=== PATIENT | male | born 1995 | race Caucasian/White ===

== ENCOUNTER 2018-12-21 12:39 | Inpatient (IN) | payer OTHER ==
[2018-12-21] VITALS (7 sets, daily range): BP systolic 124–133; BP diastolic 64–77; O2SAT 98–100
[~2018-12-21] VITALS: Ht 190.5 cm; Wt 84.9 kg
[2018-12-21] MEDS ORDERED: fentaNYL 100 MCG/2 ML INJECTION (J3010) As Ordered ONE (13:27)
[2018-12-21] MEDS ORDERED: MIDAZOLAM INJ 2 MG/2 ML VIAL (J2250) As Ordered ONE ×3 (13:27→13:55)
[2018-12-21 13:31] LABS: BASO % 0.4 % (0.0-1.0); EOS # 0.1 10^3/uL (0.0-0.5); EOS % 2.1 % (0.0-3.0); HEMATOCRIT 42.2 % (42.0-52.0); HEMOGLOBIN 14.6 g/dl (13.5-17.5); LYMPH # 1.4 10^3/uL (1.5-5.0); LYMPH % 20.4 % (24.0-44.0); MEAN CORPUSCULAR HEMOGLOBIN 29.7 pg (27.0-33.0); MEAN CORPUSCULAR HGB CONC 34.6 g/dl (32.0-36.5); MEAN CORPUSCULAR VOLUME 85.9 fl (80.0-96.0); MONO # 0.7 10^3/uL (0.0-0.8); MONO % 10.1 % (0.0-5.0); NEUTROPHILS # 4.5 10^3/uL (1.5-8.5); NEUTROPHILS % 66.7 % (36.0-66.0); PLATELET COUNT, AUTOMATED 228 10^3/uL (150-450); RED BLOOD COUNT 4.91 10^6/uL (4.30-6.10); WHITE BLOOD COUNT 6.8 10^3/uL (4.0-10.0)
[2018-12-21] MEDS ORDERED: LIDOCAINE 1% MDV 20ML VIAL As Ordered ONE (13:45)
--- NOTE | 2018-12-21 13:49 | REP ---
REASON FOR EXAM: Dyspnea. There is a moderate left sided pneumothorax which is shifting the mediastinal structures to the contralateral side. The osseous structures are normal. The heart is not enlarged. The pleural angles are sharp. IMPRESSION: Left sided tension pneumothorax. A phone call was placed to Dr. Hargrove, the ER provider, to describe these findings. Electronically Signed by Joel Abebe DO 12/21/2018 03:56 P
[2018-12-21] MEDS ORDERED: FLUMAZENIL 0.5 MG/5 ML VIAL As Ordered ONE (13:55)
[2018-12-21 13:56] LABS: BLOOD UREA NITROGEN 18 MG/DL (7-18); CALCIUM LEVEL 9.4 MG/DL (8.5-10.1); CARBON DIOXIDE LEVEL 26 MEQ/L (21-32); CHLORIDE LEVEL 106 MEQ/L (98-107); CK-MB VALUE MASS 2.4 NG/ML (<3.6); CPK CREATINE PHOSPHOKINASE 382 U/L (39-308); CREATININE FOR GFR 1.04 MG/DL (0.70-1.30); GLOMERULAR FILTRATION RATE > 60.0 (>60); GLUCOSE, FASTING 80 MG/DL (70-100); MB/CK RELATIVE INDEX 0.63 (< OR =4); NT-PRO BNP 43 PG/ML (<125); POTASSIUM SERUM 3.7 MEQ/L (3.5-5.1); SODIUM LEVEL 141 MEQ/L (136-145); THYROID STIMULATING HORMONE 0.554 uIU/ML (0.358-3.740); THYROXINE (T4) 8.4 UG/DL (4.5-12.0); TROPONIN I < 0.02 NG/ML (< 0.10)
--- NOTE | 2018-12-21 14:03 | REP ---
REASON: Cough and dyspnea. Prior plain film examination obtained earlier today showed a tension pneumothorax on the left. Dr. Hargrove was called and the finding of the left tension pneumothorax was discussed with Dr. Hargrove at the time the plain film examination was obtained. There is a moderate-sized pneumothorax on the left, which is shifting the mediastinal structures to the right. There are no abnormal lung masses. There are no pleural or pericardial effusions. Bone window technique throughout the exam shows no evidence of a fracture. IMPRESSION: Left-sided tension pneumothorax as described above. Electronically Signed by Joel Abebe DO 12/21/2018 03:57 P
[2018-12-21] MEDS ORDERED: MIDAZOLAM INJ 2 MG/2 ML VIAL (J2250) IV STA (14:11)
[2018-12-21] MEDS ORDERED: fentaNYL 100 MCG/2 ML INJECTION (J3010) IV ONE (14:15)
[2018-12-21] MEDS ORDERED: MORPHINE 4 MG/ML 1ML VIAL/SYRINGE (J2270) IV PRN (14:30)
[2018-12-21] MEDS ORDERED: PERCOCET 5MG/325MG TAB PO PRN (14:30)
[2018-12-21] MEDS ORDERED: LIDOCAINE 1% MDV 20ML VIAL SC ONE (14:30)
[2018-12-21] MEDS ORDERED: ACETAMINOPHEN TAB 650MG DOSE (2X325MG) PO PRN (14:30)
--- NOTE | 2018-12-21 14:49 | REP ---
REASON: Status post chest tube insertion. COMPARISON: Earlier today. The tension pneumothorax seen previously has been reduced. A small left apical left pneumothorax persists. The left sided thoracotomy tube tip is at the level of the aortic knob close to the mediastinal soft tissues. The right lung is clear and stable. The osseous structures stable and intact. IMPRESSION: Reduced pneumothorax with only a small residual persisting and other findings as described above. Electronically Signed by Joel Abebe DO 12/21/2018 03:57 P
--- NOTE | 2018-12-21 15:23 | RO ---
DATE OF PROCEDURE: 12/21/2018 PROCEDURE: Left lateral chest tube. PREPROCEDURE DIAGNOSIS: Left pneumothorax, possible tension. POSTPROCEDURE DIAGNOSIS: Left pneumothorax, possible tension. Consent was signed and placed in the chart. PROCEDURALIST: Dr. Naqvi SOFTWARE APPLICATIONS SPECIALIST: DYANA Krause ANESTHESIA: 8 mg IV Versed, 100 mcg IV fentanyl, and 30 mL of subcutaneous lidocaine. DESCRIPTION OF PROCEDURE: Informed consent was reviewed. The patient was placed in the right lateral recumbent position. The left fifth intercostal space was marked corresponding to the nipple line on the chest CT where there was a presence of anterolateral air. The skin was marked. Time-out was performed confirming correct site, correct procedure and correct side. After time-out was performed, I prepped and draped the field in a sterile manner with chlorhexidine and full barrier precautions. All precautions were used. I was fully gowned with sterile integrity. 1% lidocaine was then introduced subcutaneously and then above the rib down to the level of the pleura. There was a weiner air upon entering the pleura. The needle was removed and a vesta in the skin was made above this shanna. I then dissected down to the level of the pleura with the curved forceps. I then entered the space with a weiner of air. A 20-Lao chest tube was placed at 16 cm. This was secured, sutured and taped. Chest x-ray showed accurate position of the tube. After the initial weiner of air, there was no further air leak. Chest x-ray shows the majority of the lung is up to the chest wall. Appears to be some residual pneumothorax on the chest x-ray. The patient tolerated the procedure well. There were no observed complications. No bleeding. No hypoxia. MTDD
--- NOTE | 2018-12-21 17:53 | HPE ---
DATE OF ADMISSION: 12/21/2018 CHIEF COMPLAINT: Chest pain. HISTORY OF PRESENT ILLNESS: Pulmonary critical care team was called urgently to the emergency department to attend to Mr. Ashok Kaur. Mr. Kaur is a 23-year-old male who came into the emergency department today with chest pain. The patient stated that he started experiencing acute onset of chest pain approximately 10 a.m. this morning. 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 He was bending over to pick something up, and he felt almost a "pop" in his left chest and developed chest pain immediately. He states he did have a little bit of dyspnea with the chest pain. The patient has a history of a left-sided pneumothorax that occurred in October of this year, for which he was treated at [facility], and a chest tube was placed. The patient states the feeling was very similar to that that he had in October and therefore came immediately to [facility] Emergency Department, where he was evaluated and found to have a left-sided pneumothorax on chest x-ray and chest CT. The patient reports that other than the left-sided pneumothorax, he has been relatively healthy without any significant chronic medical illnesses. He is not on any medications. He is not allergic to any medicines. He is allergic to bees. The patient states since his last pneumothorax in October he has not had any further chest pain symptoms until today. He denies fevers or chills. He denies night sweats or unexplained weight loss. The patient denies any recurrent or recent respiratory illnesses. He denies any history of asthma. He is a former smoker. He states he smoked for about 6 years prior to quitting back in October around the time of his last pneumothorax. The patient is tall and thin. He denies any family history of pneumothorax or other respiratory issues. PAST MEDICAL HISTORY: Pneumothorax in October 2018 requiring chest tube. The patient was hospitalized at [facility]. Past history of smoking. 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 He smoked for 6 years but quit in October after his last pneumothorax. The patient states he drinks occasionally. The patient denies any illicit drug use. FAMILY MEDICAL HISTORY: The patient states both his mother and father are living and healthy without any significant medical issues. MEDICATIONS: None. ALLERGIES: No known drug allergies. Allergies to bees. REVIEW OF SYSTEMS: The patient denies fevers, chills, night sweats, unexplained weight loss. HEENT: The patient denies epistaxis. Denies vision changes or blurry or double vision. PULMONARY: The patient notes shortness of breath that started today as noted above. He denies cough or hemoptysis. CARDIAC: The patient is currently having chest pain due to pneumothorax as noted above. Denies any history of angina. Denies any diaphoresis. GASTROINTESTINAL: The patient denies nausea, vomiting, diarrhea, hematemesis, bright red blood per rectum. GENITOURINARY: The patient denies any dysuria or hematuria. MUSCULOSKELETAL: The patient denies any joint pain or joint swelling. NEUROLOGIC: The patient denies numbness or tingling. The patient denies any history of seizures or strokes. HEMATOLOGIC: The patient denies any bleeding issues or a history of blood transfusions. ENDOCRINE: The patient denies history of diabetes. Denies any hot or cold intolerance. PHYSICAL EXAMINATION: VITAL SIGNS: Temperature is 99.0, pulse 72, blood pressure 122/62, pulse oximetry 99% on room air, respiratory rate 70. GENERAL: The patient is alert and oriented times three. Mood affect appropriate. He is in some discomfort due to left-sided chest pain, but he is able to speak in complete sentences. HEENT: Head is normocephalic, atraumatic. Oropharynx without posterior pharyngeal erythema. Tongue is midline. Eyes: Pupils equal, round, and reactive to light and accommodation (PERRLA). NECK: Neck is supple. No cervical lymphadenopathy. No jugular venous distention (JVD). Trachea is midline. CHEST: Clear to auscultation bilaterally with some diminished breath sounds over the left chest wall. HEART: Regular rate and rhythm. S1, S2. No murmurs, rubs, or gallops. ABDOMEN: Positive bowel sounds, soft, nontender. No rebound or guarding. No obvious hepatosplenomegaly. EXTREMITIES: No clubbing, cyanosis, or edema. SKIN: Skin is warm and dry. NEUROLOGIC: Nonfocal grossly. LABORATORY DATA: WBC 6.8, hemoglobin 14.6, hematocrit 42.2, platelets 228. Sodium is 141, potassium 3.7, chloride is 106, carbon dioxide is 26, BUN 18, creatinine 1.04, glucose 80, calcium 9.4. CK 382, CK-MB 2.4, CK-MB relative index 0.63. Troponin I less than 0.02. BNP 43, TSH 0.554. Thyroxin is 8.4. Chest x-ray shows a left pneumothorax. Chest CT shows a left pneumothorax. ASSESSMENT AND PLAN: Pneumothorax, likely spontaneous but possible tension. The patient will require chest tube placement. He has a history of pneumothorax with the pneumothorax having occurred in October, requiring chest tube placement at that time. His body habitus is tall and thin, and therefore Marfan syndrome may be suspected, especially in light of the recurrent pneumothorax. We will place a left-sided chest tube and admit the patient to progressive care unit (PCU) for further monitoring. Additional workup for possible Marfan's syndrome will also be investigated.
--- NOTE | 2018-12-21 19:12 | ECGEPIP ---
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
[2018-12-21] MEDS: MORPHINE 4 MG/ML 1ML VIAL/SYRINGE (J2270) IV PRN (20:56)
[2018-12-21] MEDS: KETOROLAC 30 MG/ML VIAL (J1885) IV SCH (20:57)
[2018-12-22] VITALS (27 sets, daily range): BP systolic 112–128; BP diastolic 58–74; O2SAT 98–100
[2018-12-22] MEDS: KETOROLAC 30 MG/ML VIAL (J1885) IV SCH ×6 (00:37→21:44)
[2018-12-22 04:56] LABS: HEMATOCRIT 41.8 % (42.0-52.0); MEAN CORPUSCULAR HEMOGLOBIN 29.1 pg (27.0-33.0); MEAN CORPUSCULAR HGB CONC 33.5 g/dl (32.0-36.5); MEAN CORPUSCULAR VOLUME 86.9 fl (80.0-96.0); PLATELET COUNT, AUTOMATED 196 10^3/uL (150-450); RED BLOOD COUNT 4.81 10^6/uL (4.30-6.10); WHITE BLOOD COUNT 6.1 10^3/uL (4.0-10.0)
[2018-12-22 05:10] LABS: BLOOD UREA NITROGEN 19 MG/DL (7-18); CALCIUM LEVEL 8.7 MG/DL (8.5-10.1); CARBON DIOXIDE LEVEL 30 MEQ/L (21-32); CHLORIDE LEVEL 105 MEQ/L (98-107); CREATININE FOR GFR 0.95 MG/DL (0.70-1.30); GLOMERULAR FILTRATION RATE > 60.0 (>60); GLUCOSE, FASTING 90 MG/DL (70-100); POTASSIUM SERUM 4.2 MEQ/L (3.5-5.1); SODIUM LEVEL 140 MEQ/L (136-145)
--- NOTE | 2018-12-22 09:06 | REP ---
CHEST, TWO VIEWS: Two views of the chest are performed. There is a stable very small left apical pneumothorax. Left chest tube is noted. The tip is more lateral than on the prior study, but the sideport overlies the mid lung zone. Right lung is unremarkable and unchanged. Cardiomediastinal silhouette is unremarkable. Electronically Signed by Ayad Del Toro MD 12/23/2018 05:47 P
[2018-12-22] MEDS ORDERED: ISOVUE-370 76% 100ML VIAL (Q9967) As Ordered ONE (10:00)
[2018-12-22 11:48] LABS: INR 1.05; PROTHROMBIN TIME 13.5 SECONDS (11.8-14.0)
--- NOTE | 2018-12-22 12:23 | REP ---
CT CHEST WITH IV CONTRAST TECHNIQUE: Axial contrast enhanced images from the thoracic inlet to the upper abdomen using 100 mL Isovue 370 intravenous contrast material with multiplanar reformations. There is a left chest tube noted entering the upper left hemithorax and the distal end is in the anterior left pleural space superiorly. There is a tiny left apical pneumothorax with some minimal adjacent atelectatic change in the left lung apex. No significant bolus change is see in either lung. No infiltrate is seen more inferiorly. The lungs are otherwise clear. The heart is normal in size. There is no mediastinal, hilar or chest wall lymphadenopathy. Thoracic aorta is normal in caliber with no aneurysm. Ascending thoracic aorta has an AP diameter of 2.9 cm. There is no pleural or pericardial effusion. There is a tiny amount of residual thymic tissue in the anterior mediastinum. IMPRESSION: Tiny left apical pneumothorax with adjacent atelectatic change in the left lung apex. Left chest tube in place. No significant bullous change. Normal caliber of thoracic aorta. Electronically Signed by Ayad Del Toro MD 12/23/2018 05:54 P
--- NOTE | 2018-12-22 14:01 | CCN ---
DATE OF SERVICE: 12/22/2018 Ashok had some pain overnight, responded well to Toradol more so than narcotics, and is awake, alert, talking, ambulating in the halls. He ambulated down to x-ray this morning. Chest x-ray shows a small persistent left apical pneumothorax. The patient is eating well. No bowel movements as of yet. Has no complaints. No fever or chills. No arrhythmias. PHYSICAL EXAM: Temperature is 97.4, pulse is 55, respiratory rate is 14, blood pressure is 112/60 with a mean arterial pressure of 77, oxygen saturation 100% on 2 liters. General: Alert and oriented. Affect and mood are appropriate. Nutrition and hygiene are good. Nasal mucosa pink and moist without lesions. Tongue is midline. Neck: Supple. No tracheal deviation or mass. Lymphs: No cervical, supraclavicular or axillary adenopathy. Cardiac: Bradycardic, S1, S2, without audible murmur, rub or gallop. No elevated jugular venous pulse (JVP). No peripheral edema. Pulmonary: Clear to auscultation without rales, rhonchi or wheezes. No dullness to percussion. Chest tube site was inspected. There is no significant bleeding. Dressing was removed. Chest tube is in place. There is no subcutaneous air. This was redressed. Abdomen: Soft, nondistended, nontender. No hepatosplenomegaly. No masses. Somewhat scaphoid and thin. Extremities: No cyanosis, clubbing or edema. Skin: Pale without rash, jaundice or bruising. Musculoskeletal: Fairly thin build but normal muscle tone. The thenar distance is not abnormal, and therefore, the other skeletal physical findings usually seen with Marfan are not present. Chest x-ray this morning shows a persistent left apical pneumothorax. There is some prominence of the right heart, although this could be from shifting to the right of the cardiac silhouette, however there does appear to be some minimal right atrial enlargement, therefore, will obtain an echocardiogram. On chest CT, there does not appear to be cardiomegaly. However, the anatomy is somewhat distorted possibly from the pneumothorax. Laboratory evaluation shows sodium 140, potassium 4.2, chloride 105, bicarbonate of 30, BUN of 19, creatinine of 0.95 with a glucose of 98, white blood cell count of 6.1, hemoglobin of 14.0 and a platelet count of 196. IMPRESSION: Second spontaneous pneumothorax with near tension. I have consulted thoracic surgery. Thoracic surgery agrees for need for potential pleurodesis. They will evaluate the patient today and transfer him to their service. In the meantime, the patient's pain is well controlled. There is no evidence of progression. There remains a minimal apical pneumothorax. Therefore, the patient will remain on suction for now at negative 20 cm. Pain control with narcotics and Toradol (Toradol is scheduled, narcotics are as needed). Will continue to monitor for issues with bowel movements.
--- NOTE | 2018-12-22 21:14 | CR ---
DATE OF CONSULTATION: 12/22/2018 The patient was seen at the request of Dr. Naqvi for a recurrent pneumothorax. 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 It was accompanied by shortness of breath but not overly severe. He continued on the job for a few hours and then sought treatment in the emergency room. He was found to have a large pneumothorax with a mediastinal shift. Because of my absence, Dr. Naqvi saw him and placed a posterolateral chest tube with resolution of his pneumothorax. Prior to this, he did not have a cough, sputum production, nor did he have fevers, chills or sweats. He had no dysphagia and no weight loss. He is a former smoker, having stopped this last October after his first pneumothorax, which was treated at [facility] with an anterosuperior chest tube. He smoked about a pack a week of Valencia's. PAST MEDICAL HISTORY: None. PAST SURGICAL HISTORY: None. HOME MEDICATIONS: None. ALLERGIES: None. TRAVEL HISTORY: He has been to [place] but not to the [facility] or to the [facility]. 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 EXPOSURES: No dogs, birds, cats at home. No exposure to tuberculosis. FAMILY HISTORY: No history of sudden in the family. No other family medical history with his mother and father healthy and without medical problems. REVIEW OF SYSTEMS: CONSTITUTIONAL: See history of present illness. Without fevers, chills, sweats, night sweats or weight loss. EYES: Without diplopia. Without amaurosis fugax or prior jaundice. NOSE: Without epistaxis. MOUTH: Has his own teeth. RESPIRATORY: See history of present illness. CARDIAC: Without orthopnea or paroxysmal nocturnal dyspnea or peripheral edema. Without prior myocardial infarction. Without intermittent claudication. GASTROINTESTINAL: Without nausea, vomiting, diarrhea, constipation, melena, hematochezia, hematemesis or abdominal pain. GENITOURINARY: Without hematuria or dysuria or history of renal stones. NEUROLOGIC: Without paresthesias, paralysis or seizures. ENDOCRINE: Without diabetes. Without thyroid disease. PSYCHIATRIC: Without pathological anxieties, depression, or psychoses. PHYSICAL EXAMINATION: Well developed, well nourished, white male in no acute distress. Lying comfortably with the chest tube in place. VITAL SIGNS: Temperature 97.4 with a pulse of 55 and in sinus rhythm, respiratory rate of 14 with a blood pressure of 112/60. He is 100% saturated on 2 liters nasal cannula. EYES: Pupils are equal and reactive to light. Extraocular muscles intact. Sclerae nonicteric. NOSE: Without deformity. MOUTH: Shows mucous membranes to be pink and moist. Lips and commissures without lesions. There is no thrush. He does not have a high arched palate. HEAD: Normocephalic. NECK: Supple. There is no jugular venous distention (JVD). No subcutaneous emphysema. Trachea is midline. He has 2+ carotid pulses and no thyromegaly or lymphadenopathy. LUNGS: His lungs show equal breath sounds on either side. Percussion note is full to the diaphragm. I hear normal vesicular sounds without wheezes, rhonchi or rales. There is no pectus excavatum or carinatum. CARDIAC EXAM: Without murmurs, clicks, gallops or rubs. I cannot feel his point of maximum impulse (PMI). S1, S2 are normal. In particular, I do not hear aortic regurgitation. ABDOMEN: Soft, nontender. Bowel sounds positive. There is no hepatomegaly. No costovertebral angle tenderness. EXTREMITIES: Show no pretibial edema. No calf tenderness. No differential swelling of the upper extremities. SKIN: Warm, dry and perfused without cyanosis or mottling, including that of the nail beds and knees. He can wrap his thumb and forefinger around his wrist so that essentially they overlap up to the nail beds. He has a negative thumb sign. NEUROLOGIC: Shows II through XII intact with gross motor and gross sensation intact. Gait is not tested. PSYCHIATRIC: Shows him to be awake and alert, oriented times three with appropriate mood and affect and conversational. SKIN: Warm, dry and perfused. Without cyanosis or mottling, including that of the nail beds and knees. INVESTIGATIONS: White count is 6.1 with a hemoglobin and hematocrit of 14.0 and 41.8, respectively. Platelet count of 196. Differential yesterday showed 66% neutrophils, 20% lymphocytes, 10% monocytes. There are no immature forms and no toxic granulations. His electrolytes are normal with a BUN and creatinine of 19 and 0.95 with a glucose of 90 and a calcium of 8.7. Troponin yesterday were less than 0.02. Chest x-ray done yesterday, done portably, shows a 50% pneumothorax by volume with a mediastinal shift and the heart pushed over to the right side. There were tension signs, including depression of the left diaphragm and the mediastinal shift. There was no subcutaneous emphysema. After his chest tube placement, lung was reexpanded to the chest wall and the mediastinum was placed back in the midline. CT scan was done prior to the chest tube insertion. It confirmed the pneumothorax. There were probably apical blebs, although I cannot be sure because the lung is compressed. I see no lung masses, per se. The aorta measures 2.8 cm, although the CT is not contrasted. I see no lymphadenopathy. Today's chest x-ray done PA and lateral shows an increased right heart border. IMPRESSION: 1. Recurrent spontaneous pneumothorax times two on the left side. 2. Probable bleb disease. 3. Rule out aortic dilatation. 4. Rule out Marfan's. PLAN/DISCUSSION: I will schedule him for a wedge resection and a talc pleurodesis this Monday. In the meantime, I will repeat a CT scan now that his lung is fully expanded to the chest wall to look for the discretion of bleb disease. Furthermore, I will do it contrast to evaluate the size of the aorta. We will also obtain an echocardiogram, even though I do not hear any aortic regurgitation on physical examination.
[2018-12-23] VITALS (23 sets, daily range): BP systolic 117–127; BP diastolic 57–74; O2SAT 97–100
[2018-12-23] MEDS: KETOROLAC 30 MG/ML VIAL (J1885) IV SCH ×2 (00:28→04:54)
--- NOTE | 2018-12-23 06:51 | ECHO ---
DATE OF PROCEDURE: 12/22/2018 REFERRING PHYSICIAN: Dr. Simon INDICATION: Question of aortic insufficiency, Marfan syndrome. HEIGHT: 191 cm WEIGHT: 73 kg. DIMENSIONS: IVS: 0.9 LV: 4.7 LVPW: 0.9 LA: 3.1 Aorta: 3.2 IVC: 2.8 Mitral E wave velocity: 76, A wave: 49 E prime septal: 15 E prime lateral: 18 FINDINGS The study is of acceptable technical quality even though apical views were limited by chest tube. The patient is in sinus rhythm. Left ventricle is normal size and systolic function with estimated ejection fraction (EF) 55-60%. I do not appreciate any segmental wall motion abnormality. Right ventricle also appears normal. Both atria appear normal. Aortic valve was unfortunately not well seen. I am unable based on available views to determine that the valve is tricuspid. Mitral and tricuspid valves appear normal. Pulmonic valve also appears normal. No pericardial effusion is noted. Aortic root, aortic arch and abdominal aorta appear normal. Doppler interrogation reveals no aortic stenosis or insufficiency. There is trace mitral and trace tricuspid insufficiency. Quality of TR jet was not sufficient to adequately estimate pulmonary artery pressure. Pulmonic valve is functionally competent. Mitral inflow pattern and tissue Doppler imaging of mitral annulus reveal normal diastolic function. CONCLUSION 1. Study is of acceptable technical quality. 2. Normal LV size, systolic and diastolic function. 3. No significant valvular disease. 4. Possibly elevated central venous pressure but unable to estimate pulmonary artery pressure. 5. Normal size aortic root, normal appearing aortic arch and abdominal aorta. COMMENT Subacute bacterial endocarditis (SBE) prophylaxis is not recommended.
--- NOTE | 2018-12-23 09:07 | REP ---
CHEST, TWO VIEWS: Two views of the chest are performed and compared to prior study of 12/22/2018. Tiny left apical pneumothorax remains stable. Left chest tube remains in place. No acute infiltrate is seen. Heart and mediastinum are unchanged. IMPRESSION: Stable exam. Electronically Signed by Ayad Del Toro MD 12/23/2018 05:56 P
[2018-12-23] MEDS: PERCOCET 5MG/325MG TAB PO PRN ×3 (10:17→18:12)
[2018-12-23] MEDS: KETOROLAC 30 MG/ML VIAL (J1885) IV PRN ×2 (10:18→19:23)
--- NOTE | 2018-12-23 13:18 | IPN ---
DATE: 12/23/2018 Mr. Kaur has had an uneventful 24 hours. His pain is being well controlled at chest tube insertion site. He is not short of breath. He is able to cough and there is no air leak. His vital signs show a maximum temperature (Tmax) of 98.3 with a heart rate that ranges between 55-44 in a sinus rhythm, respiratory rate of 16-14 without the use of accessory muscles who is 100% saturated on 2 liters nasal cannula. Blood pressure ranges between 120/59-112/60. His intake and output for the past 24 hours has been recorded as 1870 in and 985 out for a positivity of 85 mL. He has put out 10 mL from the chest tube and there is no air leak. Weight is pending today. On physical examination, he has equal breath sounds on either without wheezes, rhonchi or rales. Percussion note is full to the diaphragm. Cardiac exam is without murmurs, clicks, gallops or rubs. I cannot feel his point of maximum impulse (PMI). S1 and S2 are normal. Abdomen soft, nontender. Bowel sounds positive. There is no hepatomegaly. No costovertebral angle (CVA) tenderness. Extremities show no pretibial edema. No calf tenderness. No differential swelling of the upper extremities. Skin is warm, dry and perfused without cyanosis or mottling, including that of the nail beds and knees. Neck is supple. There is no jugular venous distention. No subcutaneous emphysema. Trachea is midline. Mouth shows the mucous membranes to be pink and moist. Lips and commissures without lesions. There is no thrush. Eyes show the pupils equal and reactive. Extraocular muscles intact. Sclerae nonicteric. Neuro shows II-XII intact along with gross motor and gross sensation intact. Gait is not tested. Psychiatric shows him to be awake and alert, oriented times three with appropriate mood and affect and conversational. His chest x-ray shows his lung fully expanded to the chest wall. Chest CT done yesterday shows major bleb disease at the apex of left upper lobe. Aorta measures 2.6 cm and is not enlarged just above the root. Liver shows no lesions and adrenals have a normal configuration. IMPRESSION: 1. Recurrent spontaneous pneumothorax. 2. Distal emphysematous bleb disease. PLAN AND DISCUSSION: His echocardiogram shows normal systolic and diastolic function without valvular disease with a normal size aortic root. I therefore will not pursue anymore of the Marfan's workup as I do not think that he has Marfan. We will take him to the operating room tomorrow where we will undertake a wedge resection of the upper lobe with a talc pleurodesis.
[2018-12-23] MEDS: MORPHINE 4 MG/ML 1ML VIAL/SYRINGE (J2270) IV PRN (21:59)
[2018-12-24] VITALS (7 sets, daily range): BP systolic 100–132; BP diastolic 53–78
[2018-12-24] MEDS: PERCOCET 5MG/325MG TAB PO PRN (00:30)
[2018-12-24] MEDS ORDERED: MUPIROCIN 2% OINT 22 GM TUBE TOP ONE (06:00)
[2018-12-24] MEDS ORDERED: ceFAZolin SOD 2 GM in IV 1 EA IV ONE (06:00)
[2018-12-24] MEDS ORDERED: fentaNYL 100 MCG/2 ML INJECTION (J3010) IV SCH (06:00)
--- NOTE | 2018-12-24 07:53 | REP ---
Clinical: Follow up pneumothorax. Technique: PA and lateral. Comparison: 12/23/2018. Findings: Left chest tube in stable position. Small residual left anteroapical pneumothorax unchanged from prior examination. No acute consolidation or effusion. Mediastinum and cardiac silhouette within normal limits and stable. Skeletal structures are intact. Impression: Stable small left anteroapical pneumothorax. Electronically Signed by Ricky Miranda MD 12/24/2018 07:45 A
[2018-12-24] MEDS ORDERED: CETACAINE SPRAY 5GM As Ordered ONE (09:43)
[2018-12-24] MEDS ORDERED: STERILE TALC POWDER 3GM VIAL As Ordered ONE ×2 (09:43→12:53)
[2018-12-24] MEDS ORDERED: BUPIVACAINE HCL 0.5% 30 ML VIAL As Ordered ONE (09:44)
[2018-12-24] MEDS ORDERED: BUPIVACAINE LIPOSOME/PF 1.3% 20ML VIAL (13.3MG/ML)(EXPAREL)(C9290 PER1MG) As Ordered ONE (09:44)
[2018-12-24] MEDS ORDERED: TALCAIR POWDER BLOWER (CAN ONLY BE USED WITH 3GM TALC VIAL) XX ONE ×2 (10:07→12:53)
[2018-12-24] MEDS ORDERED: fentaNYL 100 MCG/2 ML INJECTION (J3010) As Ordered ONE ×2 (10:35→14:10)
[2018-12-24] MEDS ORDERED: MIDAZOLAM INJ 2 MG/2 ML VIAL (J2250) As Ordered ONE ×2 (10:35→13:53)
[2018-12-24] MEDS: MIDAZOLAM INJ 2 MG/2 ML VIAL (J2250) IV SCH ×2 (10:42→10:50)
[2018-12-24] MEDS ORDERED: ceFAZolin 2 GM/D5W 50 ML IV BAG (J0690 PER 500MG) As Ordered ONE (10:54)
[2018-12-24] MEDS ORDERED: MUPIROCIN 2% OINT 22 GM TUBE As Ordered ONE (10:54)
[2018-12-24] MEDS ORDERED: FENTANYL 2MCG/ML BUPIVACAINE 0.0625% NACL 250ML IV BAG As Ordered ONE (11:40)
[2018-12-24] MEDS ORDERED: ONDANSETRON 4MG/2ML VIAL (J2405) IV PRN ×3 (11:45→15:00)
[2018-12-24] MEDS ORDERED: PERCOCET 5MG/325MG TAB PO PRN (11:45)
[2018-12-24] MEDS ORDERED: BISACODYL 10 MG SUPP PR PRN (11:45)
[2018-12-24] MEDS ORDERED: NORCO, ANEXSIA 5/325MG TABLET (HYDROcodone/ACETAMINOPHEN) PO PRN (11:45)
[2018-12-24] MEDS ORDERED: LEVALBUTEROL 1.25 MG/0.5 ML CONCENTRATE NEB NEB PRN (11:45)
[2018-12-24] MEDS ORDERED: KETOROLAC 30 MG/ML VIAL (J1885) IV SCH (13:00)
[2018-12-24] MEDS ORDERED: fentaNYL 250 MCG/5 ML INJECTION (J3010) As Ordered ONE (13:53)
[2018-12-24] MEDS ORDERED: BUPIVACAINE HCL 0.25% 30 ML VIAL As Ordered ONE (13:53)
[2018-12-24] MEDS ORDERED: ROCURONIUM BROMIDE 50 MG/5 ML VIAL As Ordered ONE (13:53)
[2018-12-24] MEDS ORDERED: ePHEDrine SULFATE 25 MG/5 ML(5MG/ML) SYRINGE As Ordered ONE (13:53)
[2018-12-24] MEDS ORDERED: KETOROLAC 60 MG/2 ML VIAL (J1885) As Ordered ONE (13:53)
[2018-12-24] MEDS ORDERED: SUGAMMADEX SODIUM 500 MG/5 ML VIAL (BRIDION) As Ordered ONE (13:53)
[2018-12-24] MEDS ORDERED: ONDANSETRON 4MG/2ML VIAL (J2405) As Ordered ONE (13:53)
[2018-12-24] MEDS ORDERED: LIDOCAINE 2% INJ 100 MG/5 ML SDV (FOR ANES.) As Ordered ONE (13:53)
[2018-12-24] MEDS: FENTANYL/BUPIVACAINE/NACL BAG 250 ML EPIDURAL SCH (13:56)
[2018-12-24] MEDS: fentaNYL 100 MCG/2 ML INJECTION (J3010) IV PRN ×4 (14:05→14:20)
[2018-12-24 14:14] LABS: BASO % 0.2 % (0.0-1.0); EOS # 0.1 10^3/uL (0.0-0.5); EOS % 0.8 % (0.0-3.0); HEMATOCRIT 42.6 % (42.0-52.0); HEMOGLOBIN 14.7 g/dl (13.5-17.5); LYMPH # 0.7 10^3/uL (1.5-5.0); LYMPH % 4.9 % (24.0-44.0); MEAN CORPUSCULAR HEMOGLOBIN 29.1 pg (27.0-33.0); MEAN CORPUSCULAR HGB CONC 34.5 g/dl (32.0-36.5); MEAN CORPUSCULAR VOLUME 84.4 fl (80.0-96.0); MONO # 0.2 10^3/uL (0.0-0.8); MONO % 1.1 % (0.0-5.0); NEUTROPHILS # 12.3 10^3/uL (1.5-8.5); NEUTROPHILS % 92.6 % (36.0-66.0); PLATELET COUNT, AUTOMATED 204 10^3/uL (150-450); RED BLOOD COUNT 5.05 10^6/uL (4.30-6.10); WHITE BLOOD COUNT 13.3 10^3/uL (4.0-10.0)
[2018-12-24] MEDS ORDERED: KETOROLAC 30 MG/ML VIAL (J1885) IV PRN (14:15)
--- NOTE | 2018-12-24 14:23 | RO ---
DATE OF PROCEDURE: 12/21/2018 PREOPERATIVE DIAGNOSES: Recurrent pneumothorax, distal emphysematous bleb disease. POSTOPERATIVE DIAGNOSES: Recurrent pneumothorax, distal emphysematous bleb disease. PROCEDURES: Right upper lobe wedge resection, extensive lysis of adhesions, bronchoscopy, five-level rib block, and talc pleurodesis. SURGEON: Adam Simon MD STOCK CLERK [employer]: ANESTHESIA: FINDINGS: The upper lobe apex was densely adherent to the cupula. These adhesions were taken down with both the harmonic scalpel and electrocautery. While taking down one of the adhesions and pushing it aside, I noted a white structure. We were not below the 1st rib. However, I did not know exactly what this structure was; and I, therefore, stayed away from it. It looked for all the world like a nerve. Remainder of adhesions were taken down with care being taken to avoid the subclavian vein and subclavian artery, which were both visualized. The subclavian artery was engulfed in these adhesions and was taken down very carefully. The bronchoscopy revealed a normal branching tracheobronchial tree with very few secretions. There were no endobronchial lesions. DESCRIPTION OF PROCEDURE: Under satisfactory single-lumen endotracheal intubation, the bronchoscope was placed into the tracheobronchial tree. Each segment and subsegment was thoroughly inspected, and there were no endobronchial lesions. There were scant secretions. The patient was then turned into the right lateral decubitus position and sterilely prepped and draped in the usual sterile fashion. Eventually, three video-assisted thoracic surgery (VATS) incisions were made in and around the 7th and 6th intercostal space. A scope was inserted, and the above findings were noted. There ensued a long dissection of the adhesions. They were very dense and very adherent. I did have quite a bit of difficulty with the harmonic scalpel cutting through the adhesions due to their density. The subclavian artery and vein were identified and were assiduously avoided. The above findings were noted with regard to the large cylindrical white structure. The adhesion around it had been taken down, and then as the adhesion was slipped away, I uncovered the white structure. I did not know exactly what it was, but I preserved it. My suspicion was that it was a neural structure, maybe even a cord of the brachial plexus. Once taking down all of the adhesions, the lobe could be freed up, and a generous wedge resection of the upper apex was undertaken with three firings of an Crook GI stapler. Talc was then uniformly insufflated into the chest to cover the two-thirds of the chest wall. Prior to doing so, however, the apical basilar segment of the left lower lobe was inspected, and there were no blebs. After infusing the talc, two chest tubes were placed, one anteriorly a straight #24 and a curved #24 posteriorly. The chest tubes were secured to the chest wall. A five-level rib block consisting of a mixture of Marcaine and Exparel was then infiltrated below each rib. The incisions were instilled with the same mixture. The incisions were closed with running 0 Vicryl suture for the extrathoracic muscles, running 3-0 Vicryl suture for the subcutaneous tissue, and running 4-0 Monocryl subcuticular suture for the skin. The patient tolerated the procedure well and left the operating room in satisfactory condition. HA
[2018-12-24 14:35] LABS: BLOOD UREA NITROGEN 17 MG/DL (7-18); CALCIUM LEVEL 8.7 MG/DL (8.5-10.1); CARBON DIOXIDE LEVEL 26 MEQ/L (21-32); CHLORIDE LEVEL 103 MEQ/L (98-107); CREATININE FOR GFR 0.95 MG/DL (0.70-1.30); GLOMERULAR FILTRATION RATE > 60.0 (>60); GLUCOSE, FASTING 114 MG/DL (70-100); POTASSIUM SERUM 3.7 MEQ/L (3.5-5.1); SODIUM LEVEL 139 MEQ/L (136-145)
[2018-12-24 14:40] LABS: ABG BASE EXCESS -1.3 (-2.0-2.0); ABG HCO3 24.3 MEQ/L (22.0-26.0); ABG O2 SATURATION 98.7 % (95.0-99.0); ABG PARTIAL PRESSURE CO2 43.8 mmHg (35.0-45.0); ABG PARTIAL PRESSURE O2 133.9 mmHg (75.0-100.0); ABG STANDARD HCO3 23.4 MEQ/L (22.0-26.0); ABG TOTAL CO2 25.6 MEQ/L (22.0-29.0); ABG pH (ARTERIAL) 7.362 UNITS (7.350-7.450)
[2018-12-24] MEDS ORDERED: WALLBOXKEY XX PRN (15:00)
[2018-12-24] MEDS ORDERED: METOCLOPRAMIDE INJ 10MG/2ML VIAL (J2765) IV PRN (15:00)
[2018-12-24] MEDS ORDERED: EPIDURAL/PCA KEYS XX PRN (15:00)
[2018-12-24] MEDS ORDERED: NALOXONE INJ 0.4 MG/1 ML VIAL (J2310) IV PRN (15:00)
[2018-12-24] MEDS ORDERED: diphenhydrAMINE INJ 50MG/ML VIAL (J1200) IV PRN (15:00)
--- NOTE | 2018-12-24 15:45 | REP ---
Portable chest x-ray: Single view. History: Status post left upper lobe wedge resection. Comparison chest x-ray: December 24, 2018. Findings: EKG monitoring electrodes and oxygen tubes are seen. Two left-sided chest tubes have now been inserted. There is a suture line in the left apex post thoracotomy. A small collection of apical pleural air appears to be present at the tip of the more superior chest tube. There is linear plate-like atelectasis in the left perihilar region. Lung quinteros are otherwise clear. Heart is not enlarged. A thoracic epidural catheter is noted in place. Impression: Post thoracotomy changes in the left apex. Two left chest tubes. Small left apical pneumothorax collection. Electronically Signed by Antelmo Barillas MD 12/24/2018 05:18 P
[2018-12-24] MEDS ORDERED: ACETAMINOPHEN 1000MG 100ML IV BTL (OFIRMEV) (J0131 PER 10MG) As Ordered ONE (16:14)
[2018-12-24] MEDS ORDERED: KCL 20MEQ IN D5/0.9%NACL 1000 ML As Ordered ONE (16:14)
[2018-12-24] MEDS ORDERED: ACETAMINOPHEN *IV* 1,000 MG in IV 1 EA IV ONE (16:15)
[2018-12-24] MEDS: KCL 20MEQ IN D5/NS 1000ML 1,000 ML IV SCH (16:32)
[2018-12-24] MEDS: DOCUSATE SODIUM 100 MG CAP PO SCH ×2 (17:07→21:00)
[2018-12-24] MEDS: MOM 30ML SUSPENSION UDC PO SCH (17:08)
[2018-12-24] MEDS: KETOROLAC 30 MG/ML VIAL (J1885) IV SCH ×2 (17:08→21:25)
[2018-12-24] MEDS: PANTOPRAZOLE 40MG TAB (PROTONIX) PO SCH (17:08)
[2018-12-24] MEDS: ceFAZolin SOD 1 GM in D5W MINI-BAG PLUS 50 ML IV SCH (18:50)
[2018-12-24] MEDS: LEVALBUTEROL 1.25 MG/0.5 ML CONCENTRATE NEB NEB SCH (19:44)
[2018-12-24] MEDS: HEPARIN SOD (PORCINE) 5000 UNITS/ML VIAL SC SCH (21:57)
[2018-12-25] VITALS (10 sets, daily range): BP systolic 93–128; BP diastolic 51–74
[2018-12-25] MEDS: KETOROLAC 30 MG/ML VIAL (J1885) IV SCH ×4 (01:18→21:31)
[2018-12-25] MEDS: LEVALBUTEROL 1.25 MG/0.5 ML CONCENTRATE NEB NEB SCH ×4 (01:51→19:20)
[2018-12-25] MEDS: ceFAZolin SOD 1 GM in D5W MINI-BAG PLUS 50 ML IV SCH ×3 (05:05→19:45)
[2018-12-25] MEDS: KCL 20MEQ IN D5/NS 1000ML 1,000 ML IV SCH (05:06)
[2018-12-25 05:24] LABS: BASO % 0.1 % (0.0-1.0); EOS % 0.1 % (0.0-3.0); HEMATOCRIT 37.7 % (42.0-52.0); HEMOGLOBIN 13.2 g/dl (13.5-17.5); LYMPH # 0.6 10^3/uL (1.5-5.0); LYMPH % 5.2 % (24.0-44.0); MEAN CORPUSCULAR HEMOGLOBIN 30.3 pg (27.0-33.0); MEAN CORPUSCULAR VOLUME 86.5 fl (80.0-96.0); MONO # 0.9 10^3/uL (0.0-0.8); MONO % 7.9 % (0.0-5.0); NEUTROPHILS # 10.1 10^3/uL (1.5-8.5); NEUTROPHILS % 86.3 % (36.0-66.0); PLATELET COUNT, AUTOMATED 174 10^3/uL (150-450); RED BLOOD COUNT 4.36 10^6/uL (4.30-6.10); WHITE BLOOD COUNT 11.7 10^3/uL (4.0-10.0)
[2018-12-25 05:43] LABS: ABG BASE EXCESS 1.6 (-2.0-2.0); ABG HCO3 26.5 MEQ/L (22.0-26.0); ABG O2 SATURATION 98.4 % (95.0-99.0); ABG PARTIAL PRESSURE O2 115.9 mmHg (75.0-100.0); ABG STANDARD HCO3 25.9 MEQ/L (22.0-26.0); ABG TOTAL CO2 27.8 MEQ/L (22.0-29.0); ABG pH (ARTERIAL) 7.408 UNITS (7.350-7.450)
[2018-12-25 05:57] LABS: BLOOD UREA NITROGEN 14 MG/DL (7-18); CALCIUM LEVEL 8.2 MG/DL (8.5-10.1); CARBON DIOXIDE LEVEL 27 MEQ/L (21-32); CHLORIDE LEVEL 105 MEQ/L (98-107); CREATININE FOR GFR 0.79 MG/DL (0.70-1.30); GLOMERULAR FILTRATION RATE > 60.0 (>60); GLUCOSE, FASTING 115 MG/DL (70-100); POTASSIUM SERUM 4.3 MEQ/L (3.5-5.1); SODIUM LEVEL 140 MEQ/L (136-145)
[2018-12-25] MEDS: FENTANYL/BUPIVACAINE/NACL BAG 250 ML EPIDURAL SCH (07:06)
--- NOTE | 2018-12-25 07:39 | IPN ---
DATE: 12/25/2018 This is now the first postoperative day for Mr. Kaur. He had a stable night of surgery. His pain is being well-controlled with the epidural, although it is going at 14 mL/h. He has complete neurologic function of his left hand and arm. His vital signs show a maximum temperature (T-max) of 98.9 with a heart rate that ranges between 51 and 47 in sinus rhythm, respiratory rate of 14-18 without the use of accessory muscles, who is 97-99% saturated on room air. His blood pressures range between 93/71 to 124/66. His intake and output over the past 24 hours is recorded as 2283 in and 3100 out for negativity of 817 mL. He has put out 280 mL from his chest tube and there is one minimal air leak with forceful coughing. Weight is pending today. PHYSICAL EXAMINATION: His lungs show equal breath sounds on either side with some rales which clear with coughing. Percussion note is full to the diaphragm. Cardiac exam is without murmurs, clicks, gallops or rubs. I cannot feel his point of maximum impulse (PMI). S1 and S2 are normal. Abdomen is soft and nontender. Bowel sounds are positive. There is no hepatomegaly. No costovertebral angle (CVA) tenderness. Extremities show no pretibial edema with no calf tenderness. No differential swelling of the upper extremities. Skin is warm, dry and perfused without cyanosis or mottling including that of the nail beds and knees. Neck is supple. There is no jugular venous distention. No subcutaneous emphysema. Trachea is midline. Mouth shows his mucous membranes to be pink and moist. Lips and commissures are without lesions. There is no thrush. Eyes show his pupils to be equal and reactive. Extraocular movements intact. Sclerae nonicteric. Neurologic shows II-XII intact along with gross motor and gross sensation intact. Gait is not tested. Psychiatric showed him to be awake, alert and oriented times three with appropriate and affect and conversational. His white count today is 11.7 with a hemoglobin and hematocrit 13.2 and 37.7 and a platelet count of 174 and stable. Differential shows 86% neutrophils, 5% lymphocytes, 9% monocytes. There are no immature forms or toxic granulations. Electrolytes are normal with a BUN and creatinine of 14 and 0.79 and a glucose of 115 and a calcium of 8.2. Blood gases today show pH of 7.40 with a pCO2 of 43 and pO2 of 115 with a base excess of 1.6. Chest x-ray is being taken as I dictate and I will review in a short while this morning. IMPRESSION: 1. Spontaneous pneumothorax recurrent left side. 2. Postoperative date #1 status post talc pleurodesis and wedge resection of distal emphysematous disease. PLAN AND DISCUSSION: He is already on progressive care orders and is awaiting a bed in progressive care unit (PCU). Will discontinue the arterial line. I estimate his hospital stay will be between 4 and 5 days. I will keep chest tube on suction today.
--- NOTE | 2018-12-25 08:12 | REP ---
PA and lateral chest: Comparison is the portable chest of 12/24/2018. There is a surgical suture line superomedially in the apex of the left lung, unchanged. There are two left thoracotomy tubes, unchanged. There is a small left apical pneumothorax, unchanged. The lung quinteros are hyperinflated, unchanged. There is an epidural catheter, unchanged. Cardiac size is normal. The taran, mediastinum, skeletal structures are unremarkable. Impression: There is no interval change. The Electronically Signed by Ayad Tiwari MD 12/25/2018 08:02 A
[2018-12-25] MEDS: PANTOPRAZOLE 40MG TAB (PROTONIX) PO SCH (09:42)
[2018-12-25] MEDS: DOCUSATE SODIUM 100 MG CAP PO SCH ×2 (09:42→21:30)
[2018-12-25] MEDS: MOM 30ML SUSPENSION UDC PO SCH (09:42)
[2018-12-25] MEDS: HEPARIN SOD (PORCINE) 5000 UNITS/ML VIAL SC SCH ×2 (09:45→21:31)
[2018-12-25] MEDS: ACETAMINOPHEN TAB 650MG DOSE (2X325MG) PO PRN (18:23)
[2018-12-26] MEDS: LEVALBUTEROL 1.25 MG/0.5 ML CONCENTRATE NEB NEB SCH ×4 (00:34→19:52)
[2018-12-26] MEDS: FENTANYL/BUPIVACAINE/NACL BAG 250 ML EPIDURAL SCH (02:59)
[2018-12-26] MEDS: ceFAZolin SOD 1 GM in D5W MINI-BAG PLUS 50 ML IV SCH ×2 (04:17→12:01)
[2018-12-26] MEDS: KETOROLAC 30 MG/ML VIAL (J1885) IV SCH ×4 (04:17→22:36)
[2018-12-26 04:30] VITALS: BP 113/57
[2018-12-26 05:28] LABS: BASO % 0.3 % (0.0-1.0); EOS # 0.3 10^3/uL (0.0-0.5); EOS % 2.9 % (0.0-3.0); HEMATOCRIT 35.7 % (42.0-52.0); HEMOGLOBIN 12.2 g/dl (13.5-17.5); LYMPH # 1.1 10^3/uL (1.5-5.0); LYMPH % 11.4 % (24.0-44.0); MEAN CORPUSCULAR HEMOGLOBIN 29.3 pg (27.0-33.0); MEAN CORPUSCULAR HGB CONC 34.2 g/dl (32.0-36.5); MEAN CORPUSCULAR VOLUME 85.8 fl (80.0-96.0); MONO # 1.2 10^3/uL (0.0-0.8); MONO % 12.6 % (0.0-5.0); NEUTROPHILS % 72.6 % (36.0-66.0); PLATELET COUNT, AUTOMATED 157 10^3/uL (150-450); RED BLOOD COUNT 4.16 10^6/uL (4.30-6.10); WHITE BLOOD COUNT 9.6 10^3/uL (4.0-10.0)
[2018-12-26 05:54] LABS: BLOOD UREA NITROGEN 16 MG/DL (7-18); CALCIUM LEVEL 7.9 MG/DL (8.5-10.1); CARBON DIOXIDE LEVEL 29 MEQ/L (21-32); CHLORIDE LEVEL 103 MEQ/L (98-107); GLOMERULAR FILTRATION RATE > 60.0 (>60); GLUCOSE, FASTING 92 MG/DL (70-100); POTASSIUM SERUM 4.2 MEQ/L (3.5-5.1); SODIUM LEVEL 137 MEQ/L (136-145)
[2018-12-26 07:35] VITALS: BP 117/56
--- NOTE | 2018-12-26 08:49 | REP ---
CHEST, TWO VIEWS: Two views of the chest are performed and compared to prior study of 12/25/2018. Two left chest tubes remain in place. There is a small left apical pneumothorax unchanged. Surgical sutures are again seen at the left apex. Linear atelectatic changes are again seen in the medial aspect of the left lung. The heart and mediastinum are unchanged. IMPRESSION: Stable exam. Electronically Signed by Ayad Del Toro MD 12/26/2018 11:25 A
--- NOTE | 2018-12-26 09:04 | IPN ---
DATE: 12/25/2018 This is now the second postoperative day for Mr. Kaur. There were no progressive care unit (PCU) beds and he remains in the intensive care unit (ICU) as a PCU patient. His pain is being well controlled and he is breathing well. He still has a one bubble air leak with forceful coughing. His vital signs show a T-max of 100.3 secondary to the talc inflammatory response. Heart rate ranges between 107 and 72 in a sinus rhythm with a respiratory rate of 18 to 20 without the use of accessory muscles, who is 97% to 99% saturated on room air, and whose blood pressure is ranging between 117/56 to 128/60. His intake and output the past 24 hours has been recorded as 1316 in and 3890 out for a negativity of 2575 mL. He has put a 165 mL from his chest tube and spontaneously has diuresed 3725 mL. His weight today is 69.5 kg compared to 72.5 kg yesterday. On physical examination, his lungs show equal breath sounds on either side. I do not hear a pleural friction rub. Percussion note full to the diaphragm. Cardiac exam is without murmurs, clicks, gallops, or rubs. I cannot feel his PMI. S1 and S2 are normal. Abdomen: Soft. Nontender. Bowel sounds are positive. There is no hepatomegaly. No costovertebral angle (CVA) tenderness. Extremities: Show no pretibial edema. No calf tenderness. No differential swelling of the upper extremities. Skin: Warm, dry and perfused. Without cyanosis or mottling, including that of the nail beds and knees. Neck: Supple. There is no jugular venous distention. No subcutaneous emphysema. Trachea is midline. Mouth: Shows his mucous membranes to be pink and moist. Lips and commissures are without lesions. There is no thrush. Eyes: Show his pupils to be equal and reactive. Extraocular movements intact. Sclerae nonicteric. Neurologic: Shows II-XII intact along with gross motor and gross sensation intact. Gait is not tested. Psychiatric shows him to be awake, alert, and oriented times three with appropriate mood and affect and conversational. His white count today is 9.6 down from 11.7 yesterday. Hemoglobin and hematocrit are 12.2 and 35.7, essentially unchanged from yesterday with a platelet count of 157 and stable. Differential shows 72% neutrophils, 11% lymphocytes, 12% monocytes. There are no immature forms and no toxic granulations. Electrolytes are normal with a BUN and creatinine of 16 and 1.0, glucose 92, and calcium 7.9. There are no blood gases on him today. His chest x-ray shows his lung fully expanded to the chest wall. There is no subcutaneous emphysema. Chest tubes are in good place. I can clearly see the staple line. There is no pneumothorax or air space. Costophrenic angles are sharp. IMPRESSION: 1. Postoperative day #2 status left upper lobe wedge resection and talc pleurodesis. 2. Spontaneous pneumothorax, recurrent, on the left side. PLAN AND DISCUSSION: As he still has a small air leak, I will keep his chest tube on suction. He has already been written for transport to the PCU. There are no PCU beds available as of yet. He is up and about ambulating and taking in good by mouth intake.
[2018-12-26] MEDS: DOCUSATE SODIUM 100 MG CAP PO SCH ×2 (09:15→21:00)
[2018-12-26] MEDS: PANTOPRAZOLE 40MG TAB (PROTONIX) PO SCH (09:15)
[2018-12-26] MEDS: MOM 30ML SUSPENSION UDC PO SCH (09:15)
[2018-12-26] MEDS: HEPARIN SOD (PORCINE) 5000 UNITS/ML VIAL SC SCH ×2 (09:16→21:00)
[2018-12-26 12:01] VITALS: BP 125/60
[2018-12-26] MEDS: ACETAMINOPHEN TAB 650MG DOSE (2X325MG) PO PRN (16:10)
[2018-12-26 16:11] VITALS: BP 129/59
[2018-12-26] MEDS: FENTANYL/BUPIVACAINE BAG 250 ML EPIDURAL SCH (17:59)
[2018-12-26] MEDS ORDERED: METOCLOPRAMIDE INJ 10MG/2ML VIAL (J2765) IV PRN (18:00)
[2018-12-26] MEDS ORDERED: WALLBOXKEY XX PRN (18:00)
[2018-12-26] MEDS ORDERED: NALOXONE INJ 0.4 MG/1 ML VIAL (J2310) IV PRN (18:00)
[2018-12-26] MEDS ORDERED: ONDANSETRON 4MG/2ML VIAL (J2405) IV PRN (18:00)
[2018-12-26] MEDS ORDERED: diphenhydrAMINE INJ 50MG/ML VIAL (J1200) IV PRN (18:00)
[2018-12-26] MEDS ORDERED: EPIDURAL/PCA KEYS XX PRN (18:00)
[2018-12-26 20:00] VITALS: BP 139/70
[2018-12-27] VITALS (7 sets, daily range): BP systolic 115–142; BP diastolic 57–72
[2018-12-27] MEDS: LEVALBUTEROL 1.25 MG/0.5 ML CONCENTRATE NEB NEB SCH ×4 (02:00→21:05)
[2018-12-27] MEDS: KETOROLAC 30 MG/ML VIAL (J1885) IV SCH ×4 (04:00→21:32)
[2018-12-27] MEDS: ACETAMINOPHEN TAB 650MG DOSE (2X325MG) PO PRN ×2 (04:05→21:47)
[2018-12-27 05:56] LABS: BASO % 0.3 % (0.0-1.0); EOS # 0.4 10^3/uL (0.0-0.5); EOS % 3.6 % (0.0-3.0); HEMATOCRIT 37.1 % (42.0-52.0); HEMOGLOBIN 12.6 g/dl (13.5-17.5); LYMPH # 0.9 10^3/uL (1.5-5.0); LYMPH % 9.1 % (24.0-44.0); MEAN CORPUSCULAR HEMOGLOBIN 29.9 pg (27.0-33.0); MEAN CORPUSCULAR VOLUME 87.9 fl (80.0-96.0); MONO # 1.1 10^3/uL (0.0-0.8); MONO % 11.6 % (0.0-5.0); NEUTROPHILS # 7.3 10^3/uL (1.5-8.5); NEUTROPHILS % 75.1 % (36.0-66.0); PLATELET COUNT, AUTOMATED 150 10^3/uL (150-450); RED BLOOD COUNT 4.22 10^6/uL (4.30-6.10); WHITE BLOOD COUNT 9.8 10^3/uL (4.0-10.0)
[2018-12-27 06:17] LABS: BLOOD UREA NITROGEN 15 MG/DL (7-18); CALCIUM LEVEL 8.5 MG/DL (8.5-10.1); CARBON DIOXIDE LEVEL 28 MEQ/L (21-32); CHLORIDE LEVEL 103 MEQ/L (98-107); CREATININE FOR GFR 0.83 MG/DL (0.70-1.30); GLOMERULAR FILTRATION RATE > 60.0 (>60); GLUCOSE, FASTING 92 MG/DL (70-100); POTASSIUM SERUM 4.3 MEQ/L (3.5-5.1); SODIUM LEVEL 137 MEQ/L (136-145)
--- NOTE | 2018-12-27 07:41 | REP ---
Clinical: Status post left upper lobe wedge resection. Technique: PA and lateral. Comparison: 12/26/2018. Findings: Two left-sided chest tubes are in stable position and a small residual left apical pneumothorax is suggested. Remainder of lung quinteros remain stable and without new acute consolidation or effusion. The cardiac silhouette is normal. The skeletal structures are intact. Impression: Small residual left apical pneumothorax suggested and essentially unchanged. No new acute process. Electronically Signed by Ricky Miranda MD 12/27/2018 07:32 A
--- NOTE | 2018-12-27 10:05 | IPN ---
DATE: 12/27/2018 This is now the third postoperative day for Mr. Kaur. His air leak has disappeared. His chest x-ray however shows a small apical cap of air. His pain is being well controlled with the epidural. He is appropriately febrile from the talc pleuritis. His vital signs show a T-max of 101.3 with a heart rate that ranges between 72 and 102 in a sinus rhythm with a respiratory rate of 17 to 19 without the use of accessory muscles, who is 98% saturated on room air, and whose blood pressure is ranging between 139/70 to 125/62. Intake and output over the past 24 hours has been recorded as 4344 in and 5040 out for a negativity of 696 mL. He has put out 4800 mL in urine. He has taken in 4020 mL in by mouth intake. Chest tube has put out 240 mL and there is no air leak. His physical examination shows equal breath sounds on either side. I still do not hear a pleural friction rub. Percussion note is full to the diaphragm. Cardiac exam is without murmurs, clicks, gallops, or rubs. I cannot feel his PMI. S1 and S2 are normal. Abdomen: Soft. Nontender. Bowel sounds are positive. There is no hepatomegaly. No costovertebral angle (CVA) tenderness. Extremities: Show no pretibial edema. No calf tenderness. No differential swelling of the upper extremities. Skin: Warm, dry and perfused. Without cyanosis or mottling, including that of the nail beds and knees. Neck: Supple. There is no jugular venous distention. No subcutaneous emphysema. Trachea is midline. Mouth: Shows his mucous membranes to be pink and moist. Lips and commissures are without lesions. There is no thrush. Eyes: Show his pupils to be equal and reactive. Extraocular movements intact. Sclerae nonicteric. Neurologic: Shows II-XII intact along with gross motor and gross sensation intact. Gait is not tested. Psychiatric shows him to be awake, alert, and oriented times three with appropriate mood and affect and conversational. His white count is 9.8 with a hemoglobin and hematocrit of 12.6 and 37.1 and a platelet count of 150. All of these were stable and essentially unchanged from yesterday. Differential shows 75% neutrophils, 9% lymphocytes, 10% monocytes. There are no immature forms and no toxic granulations. His electrolytes are normal with a BUN and creatinine of 15 and 0.83, glucose 92, and a calcium of 8.5. Chest x-ray as noted above shows a small apical air space in the left upper cupula. Costophrenic angles are sharp. The lung is fully expanded to the chest wall otherwise. There are no infiltrates. IMPRESSION: 1. Postoperative day #3 status left upper lobe wedge resection and talc pleurodesis. 2. Spontaneous pneumothorax, recurrent, on the left side. PLAN AND DISCUSSION: I will increase his chest suction today to 40 to get the lung all the way to the chest wall so that the pleuritic scarring reaction can occur at the cupula. Other than that, he is doing well. He has already been written for progressive care unit (PCU) orders, although there are no PCU beds available.
[2018-12-27] MEDS: HEPARIN SOD (PORCINE) 5000 UNITS/ML VIAL SC SCH ×2 (10:27→21:32)
[2018-12-27] MEDS: PANTOPRAZOLE 40MG TAB (PROTONIX) PO SCH (10:27)
[2018-12-27] MEDS: MOM 30ML SUSPENSION UDC PO SCH (10:27)
[2018-12-27] MEDS: DOCUSATE SODIUM 100 MG CAP PO SCH ×2 (10:28→21:32)
[2018-12-27] MEDS ORDERED: MAGNESIUM CITRATE 300 ML BTL PO ONE (13:00)
[2018-12-27] MEDS: FENTANYL/BUPIVACAINE BAG 250 ML EPIDURAL SCH (18:01)
[2018-12-28] MEDS: LEVALBUTEROL 1.25 MG/0.5 ML CONCENTRATE NEB NEB SCH ×4 (01:25→19:38)
[2018-12-28] MEDS: KETOROLAC 30 MG/ML VIAL (J1885) IV SCH ×4 (03:55→22:07)
[2018-12-28 04:00] VITALS: BP 123/60
[2018-12-28 05:46] LABS: BASO % 0.5 % (0.0-1.0); EOS # 0.5 10^3/uL (0.0-0.5); EOS % 8.9 % (0.0-3.0); HEMATOCRIT 34.2 % (42.0-52.0); HEMOGLOBIN 11.7 g/dl (13.5-17.5); LYMPH # 1.2 10^3/uL (1.5-5.0); LYMPH % 21.1 % (24.0-44.0); MEAN CORPUSCULAR HEMOGLOBIN 29.4 pg (27.0-33.0); MEAN CORPUSCULAR HGB CONC 34.2 g/dl (32.0-36.5); MEAN CORPUSCULAR VOLUME 85.9 fl (80.0-96.0); MONO # 0.8 10^3/uL (0.0-0.8); MONO % 14.3 % (0.0-5.0); NEUTROPHILS % 54.8 % (36.0-66.0); PLATELET COUNT, AUTOMATED 171 10^3/uL (150-450); RED BLOOD COUNT 3.98 10^6/uL (4.30-6.10); WHITE BLOOD COUNT 5.5 10^3/uL (4.0-10.0)
[2018-12-28 06:04] LABS: BLOOD UREA NITROGEN 15 MG/DL (7-18); CALCIUM LEVEL 8.8 MG/DL (8.5-10.1); CARBON DIOXIDE LEVEL 30 MEQ/L (21-32); CHLORIDE LEVEL 104 MEQ/L (98-107); CREATININE FOR GFR 0.95 MG/DL (0.70-1.30); GLOMERULAR FILTRATION RATE > 60.0 (>60); GLUCOSE, FASTING 83 MG/DL (70-100); POTASSIUM SERUM 4.2 MEQ/L (3.5-5.1); SODIUM LEVEL 137 MEQ/L (136-145)
[2018-12-28 08:00] VITALS: BP 124/62
--- NOTE | 2018-12-28 08:11 | REP ---
PA and lateral chest: Comparison is 12/27/2018. The two left thoracotomy tubes are unchanged. The left apical pneumothorax is unchanged. The surgical staple line in the apex of the left upper lobe is unchanged. The epidural catheter is unchanged. Right lung is clear. Cardiac size is normal. Impression: There is no interval change. Electronically Signed by Ayad Tiwari MD 12/28/2018 08:03 A
[2018-12-28] MEDS: HEPARIN SOD (PORCINE) 5000 UNITS/ML VIAL SC SCH ×3 (09:00→22:05)
--- NOTE | 2018-12-28 09:33 | IPN ---
DATE: 12/28/2018 This is now the fourth postoperative day for Mr. Kaur. His pain is being well controlled with the epidural. He is up and around ambulating. There is no air leak. His vital signs show a T-max today of 99.6 now down to 96.1. His heart rate ranges between 88 and 65 in a sinus rhythm with a respiratory rate of 17 to 20 without the use of accessory muscles, who is 96% saturated on room air, and his blood pressure is ranging between 142/65 to 126/60. His intake and output over the past 24 hours has been recorded as 2560 in and 4710 out for a negativity of 2150 mL. He has taken in 2500 mL in by mouth intake. His urine output has been 4400 mL and his chest tube output has been 310 mL. There is no air leak. Weight today is 87.5 kilos which is probably incorrect as he was 69.5 kilos on 12/26/2018. His physical examination lungs show equal breath sounds on either side and today i can hear a faint pleural friction rub during late inspiration. Percussion noted is full to the diaphragm. Cardiac exam is without murmurs, clicks, gallops, or rubs. I cannot feel his PMI. S1 and S2 are normal. Abdomen: Soft. Nontender. Bowel sounds are positive. There is no hepatomegaly. No costovertebral angle (CVA) tenderness. Extremities: Show no pretibial edema. No calf tenderness. No differential swelling of the upper extremities. Skin: Warm, dry and perfused without cyanosis or mottling, including that of the nail beds and knees. Neck: Supple. There is no jugular venous distention. No subcutaneous emphysema. Trachea is midline. Mouth: Shows his mucous membranes to be pink and moist. Lips and commissures are without lesions. There is no thrush. Eyes: Show his pupils to be equal and reactive. Extraocular movements intact. Sclerae nonicteric. Neurologic: Shows II-XII intact along with gross motor and gross sensation intact. Gait is not tested. Psychiatric shows him to be awake, alert, and oriented times three with appropriate mood and affect and conversational. His white count today is 5.5 with a hemoglobin and hematocrit of 11.7 and 34.2, essentially unchanged from yesterday with a platelet count of 171. All of these were stable. Differential shows 74% neutrophils, 21% lymphocytes, 14% monocytes. There are no immature forms and no toxic granulations. His electrolytes are normal with a BUN and creatinine of 15 and 0.95, glucose 83, and a calcium of 8.8. Chest x-ray today on 40 cm of water suction shows the lung full expanded to chest wall. The small air space is resolved. Chest tubes are in good placed. Costophrenic angles are sharp and there are no infiltrates. IMPRESSION: 1. Recurrent spontaneous pneumothorax. 2. Postoperative day #4 status wedge resection and talc pleurodesis left upper lobe. PLAN AND DISCUSSION: I will decrease his suction to -20 today. He put out a little too much out of the chest tube for me to remove it and I will probably remove the chest tubes tomorrow. He does not have an air leak even on sunction.
[2018-12-28] MEDS: PANTOPRAZOLE 40MG TAB (PROTONIX) PO SCH (10:17)
[2018-12-28] MEDS: MOM 30ML SUSPENSION UDC PO SCH (10:18)
[2018-12-28] MEDS: DOCUSATE SODIUM 100 MG CAP PO SCH ×2 (10:18→22:05)
[2018-12-28 12:00] VITALS: BP 107/60
[2018-12-28 16:00] VITALS: BP 104/53
[2018-12-28] MEDS: FENTANYL/BUPIVACAINE BAG 250 ML EPIDURAL SCH (17:59)
[2018-12-28 20:00] VITALS: BP 142/71
[2018-12-29] VITALS: BP 132/56
[2018-12-29] MEDS: LEVALBUTEROL 1.25 MG/0.5 ML CONCENTRATE NEB NEB SCH ×4 (00:09→20:08)
[2018-12-29 04:00] VITALS: BP 117/62
[2018-12-29] MEDS: KETOROLAC 30 MG/ML VIAL (J1885) IV SCH ×2 (04:53→09:25)
[2018-12-29 05:52] LABS: BASO % 0.4 % (0.0-1.0); EOS # 0.4 10^3/uL (0.0-0.5); EOS % 8.8 % (0.0-3.0); HEMATOCRIT 35.6 % (42.0-52.0); HEMOGLOBIN 12.2 g/dl (13.5-17.5); LYMPH % 19.6 % (24.0-44.0); MEAN CORPUSCULAR HEMOGLOBIN 29.3 pg (27.0-33.0); MEAN CORPUSCULAR HGB CONC 34.3 g/dl (32.0-36.5); MEAN CORPUSCULAR VOLUME 85.4 fl (80.0-96.0); MONO # 0.6 10^3/uL (0.0-0.8); MONO % 12.4 % (0.0-5.0); NEUTROPHILS # 2.9 10^3/uL (1.5-8.5); NEUTROPHILS % 58.6 % (36.0-66.0); PLATELET COUNT, AUTOMATED 201 10^3/uL (150-450); RED BLOOD COUNT 4.17 10^6/uL (4.30-6.10)
[2018-12-29 06:14] LABS: BLOOD UREA NITROGEN 21 MG/DL (7-18); CALCIUM LEVEL 8.7 MG/DL (8.5-10.1); CARBON DIOXIDE LEVEL 29 MEQ/L (21-32); CHLORIDE LEVEL 102 MEQ/L (98-107); CREATININE FOR GFR 0.92 MG/DL (0.70-1.30); GLOMERULAR FILTRATION RATE > 60.0 (>60); GLUCOSE, FASTING 94 MG/DL (70-100); POTASSIUM SERUM 4.3 MEQ/L (3.5-5.1); SODIUM LEVEL 138 MEQ/L (136-145)
[2018-12-29 08:00] VITALS: BP 128/63
--- NOTE | 2018-12-29 08:07 | REP ---
PA LATERAL CHEST: 12/29/2018. Comparison: 12/28/2018, 12/27/2018, 12/26/2018. Clinical history: Status post left upper lobe wedge resection with chest tubes and apical pneumothorax. Findings: Two left upper lung zone chest tubes, one at the apex of the mid upper lung zone unchanged. There is a 1 cm apical air gap at the left apex unchanged. Lung staple line is noted medially in the left apex. There is an epidural catheter projecting over the midchest. Lungs otherwise clear well inflated. Heart, mediastinal and hilar contours normal. Aorta and airway intact bony thorax shows no focal lesion. Skin luis in the anterolateral left chest wall about the anterior axillary line in the mid chest unchanged. Impression: 1. Stable chest with two apical chest tubes, small left apical pneumothorax and lung luis from wedge resection. No new or acute finding. Electronically Signed by Jose Reese MD 12/29/2018 07:29 P
[2018-12-29] MEDS: HEPARIN SOD (PORCINE) 5000 UNITS/ML VIAL SC SCH ×2 (09:00→21:24)
[2018-12-29] MEDS: MOM 30ML SUSPENSION UDC PO SCH (09:24)
[2018-12-29] MEDS: DOCUSATE SODIUM 100 MG CAP PO SCH ×2 (09:24→21:23)
[2018-12-29] MEDS: PANTOPRAZOLE 40MG TAB (PROTONIX) PO SCH (09:24)
[2018-12-29] MEDS ORDERED: FENTANYL/BUPIVACAINE BAG 250 ML EPIDURAL SCH (09:54)
--- NOTE | 2018-12-29 11:08 | IPN ---
DATE OF SERVICE: 12/29/2018 Mr. Kaur'amber pain is being well controlled on the epidural. This is now his fifth postoperative day. His vital signs show a T-max of 98.3 with a heart rate that ranges now between 72 and 51 in a sinus rhythm, a respiratory rate of 16 to 20 without the use of accessory muscles, who is 97% saturated on room air, and whose his blood pressure is ranging between 107/60 to 132/56. His intake and output over the past 24 hours has been recorded as only 658 in and 355 out for a negativity of 2400 mL. He weighs 85.2 kg compared to 87.5 kg yesterday. He has put out 105 mL from the chest tube and there is no air leak. On physical examination he has equal breath sounds on either side. I hear no wheezes, rhonchi or rales. I do hear a faint pericardial pleural friction rub at the end of inspiration. Percussion note is full to the diaphragm. Cardiac exam is without murmurs, clicks, gallops, or rubs. I cannot feel his PMI. S1 and S2 are normal. Abdomen: Soft. Nontender. Bowel sounds are positive. There is no hepatomegaly. No costovertebral angle (CVA) tenderness. Extremities: Show no pretibial edema. No calf tenderness. No differential swelling of the upper extremities. Skin: Warm, dry and perfused without cyanosis or mottling, including that of the nail beds and knees. Neck: Supple. There is no jugular venous distention. No subcutaneous emphysema. Trachea is midline. Mouth: Shows his mucous membranes to be pink and moist. Lips and commissures are without lesions. There is no thrush. Eyes: Show his pupils to be equal and reactive. Extraocular movements intact. Sclerae nonicteric. Neurologic: Shows II-XII intact along with gross motor and gross sensation intact. Gait is also intact. Psychiatric shows him to be awake, alert, and oriented times three with appropriate mood and affect and conversational. His white count today is 5.0 with a hemoglobin and hematocrit of 12.5 and 35.6, essentially unchanged from yesterday, with a platelet count of 201 and stable. Differential shows 58% neutrophils, 19% lymphocytes, 12% monocytes. There are no immature forms and no toxic granulations. His electrolytes are normal with a BUN and creatinine of 21 and 0.92, glucose 94, and a calcium of 8.7. Chest x-ray shows a small apical air cap in the left cupula. Chest tubes are in good place. There is no subcutaneous emphysema. IMPRESSION: 1. Recurrent spontaneous pneumothoraces. 2. Postoperative day #5 status wedge resection and talc pleurodesis left upper lobe. PLAN AND DISCUSSION: I will discontinue his chest tubes today, wean his epidural and discontinue his [place]. If all goes well, will plan for discharge in the morning.
[2018-12-29 12:00] VITALS: BP 141/66
[2018-12-29 16:00] VITALS: BP 138/62
[2018-12-29 20:00] VITALS: BP 121/65
[2018-12-29] MEDS: PERCOCET 5MG/325MG TAB PO PRN (23:52)
[2018-12-30] VITALS: BP 121/65
[2018-12-30 04:00] VITALS: BP 120/65
[2018-12-30] MEDS: PERCOCET 5MG/325MG TAB PO PRN ×2 (04:10→08:43)
[2018-12-30 08:00] VITALS: BP 126/74
[2018-12-30] MEDS: LEVALBUTEROL 1.25 MG/0.5 ML CONCENTRATE NEB NEB SCH (08:00)
[2018-12-30 08:02] LABS: BASO % 0.7 % (0.0-1.0); EOS # 0.5 10^3/uL (0.0-0.5); EOS % 11.1 % (0.0-3.0); HEMATOCRIT 43.9 % (42.0-52.0); HEMOGLOBIN 14.8 g/dl (13.5-17.5); LYMPH % 22.1 % (24.0-44.0); MEAN CORPUSCULAR HEMOGLOBIN 29.5 pg (27.0-33.0); MEAN CORPUSCULAR HGB CONC 33.7 g/dl (32.0-36.5); MEAN CORPUSCULAR VOLUME 87.6 fl (80.0-96.0); MONO # 0.5 10^3/uL (0.0-0.8); MONO % 11.7 % (0.0-5.0); NEUTROPHILS # 2.4 10^3/uL (1.5-8.5); NEUTROPHILS % 54.2 % (36.0-66.0); PLATELET COUNT, AUTOMATED 267 10^3/uL (150-450); RED BLOOD COUNT 5.01 10^6/uL (4.30-6.10); WHITE BLOOD COUNT 4.4 10^3/uL (4.0-10.0)
[2018-12-30 08:27] LABS: BLOOD UREA NITROGEN 24 MG/DL (7-18); CALCIUM LEVEL 9.3 MG/DL (8.5-10.1); CARBON DIOXIDE LEVEL 31 MEQ/L (21-32); CHLORIDE LEVEL 100 MEQ/L (98-107); CREATININE FOR GFR 1.02 MG/DL (0.70-1.30); GLOMERULAR FILTRATION RATE > 60.0 (>60); GLUCOSE, FASTING 86 MG/DL (70-100); POTASSIUM SERUM 4.7 MEQ/L (3.5-5.1); SODIUM LEVEL 136 MEQ/L (136-145)
[2018-12-30] MEDS: DOCUSATE SODIUM 100 MG CAP PO SCH (08:43)
[2018-12-30] MEDS: HEPARIN SOD (PORCINE) 5000 UNITS/ML VIAL SC SCH (08:43)
[2018-12-30] MEDS: MOM 30ML SUSPENSION UDC PO SCH (08:43)
[2018-12-30] MEDS: PANTOPRAZOLE 40MG TAB (PROTONIX) PO SCH (08:44)
--- NOTE | 2018-12-30 10:36 | REP ---
CHEST PA AND LATERAL: 12/30/2018. Comparison: 12/29/2018, 12/28/2018, 12/27/2018. Clinical history: Status post left upper lobe wedge resection. Chest tube removal. Findings: Due to left upper lung zone chest tubes are now removed. Lung staple line further clearing and suprahilar paramedian location again seen. Small apical pneumothorax with an air gap of 10 mm is seen and unchanged. There is some minor curvilinear atelectatic or fibrotic change posterior basal segment of the left lower lobe. No other interval change or finding. Impression: 1. The two left chest tubes have been removed with no change in the tiny left apical air gap. 2. Postoperative changes with lung staple line medially in the left upper lung zone. Otherwise stable exam. Electronically Signed by Jose Reese MD 12/30/2018 01:10 P
[2018-12-30] MEDS ORDERED: PERCOCET PO (10:47)
--- NOTE | 2018-12-30 11:59 | DSES ---
DATE OF ADMISSION: 12/21/2018 DATE OF DISCHARGE: DISCHARGE DIAGNOSES: 1. Recurrent left pneumothorax. 2. Postoperative day #5 status post wedge resection right upper lobe, talc pleurodesis left side. 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 This was accompanied by shortness of breath. He continued on the job for a few hours and then sought treatment in the emergency room. He was found to have a large pneumothorax with a mediastinal shift. A chest tube was placed resolving the pneumothorax. Initially, the chest tube did not have an air leak and it was removed on the second hospital day. However, the lung re-collapsed with a resulting large pneumothorax and a large chest tube was placed. He was therefore taken to the operating room where he underwent a talc pleurodesis and a left upper lobe wedge resection. Findings of the operation showed major inflammatory blebs, which were very adherent to cupula of the chest. Dissection was notable for uncovering what looked to be nerve root at the cupula trying to get the adhesions down. He underwent a talc pleurodesis. He had a benign postoperative course with an air leak lasting approximately 24 hours. His chest tubes were finally removed on the fourth postoperative day. Epidural was weaned and on the morning of discharge, he had noted some numbness and tingling along the ulnar distribution of the left arm. I explained to him that may be secondary to the nerve that was uncovered and that my expectation is that it will return in a couple of months. He also complains of dermatomal numbness on the port incisions. He is being discharged today on Percocet 5/325 every 4 hours as needed for pain #20. I will see him back in the office in 1 week with a chest x-ray. His chest x-ray shows his lung fully expanded to the chest wall with a very small air space just at the right cupula measuring 1 x 1 cm. His discharge white count is 4.4 with a hemoglobin and hematocrit of 14.8 and 43.9, and a platelet count of 267. Electrolytes are normal with a BUN and creatinine of 24 and 1.02. He has been instructed to leave the wounds open to air and he may shower. I have asked him not to do any heavy lifting for the next 4 weeks and no driving until he sees me in followup in 1 week.
== END 2018-12-30 12:02 | disposition home or self-care (01) | DRG 165 ==
LOC: M ED 12:39 → M ICU 16:09 → M PCU 12-27 15:50
PROVIDERS: ADMIT Internal Medicine Pulmonary Disease; ATTEND Thoracic Surgery (Cardiothoracic Vascular Surgery)
PROC: 0BBG4ZZ Excision of Left Upper Lung Lobe, Percutaneous Endoscopic Approach (ICD-10-PCS; principal; 2018-12-21)
PROC: 0BNG4ZZ Release Left Upper Lung Lobe, Percutaneous Endoscopic Approach (ICD-10-PCS; 2018-12-21)
PROC: 0W9B00Z Drainage of Left Pleural Cavity with Drainage Device, Open Approach (ICD-10-PCS; 2018-12-21)
PROC: 3E0L3GC Introduction of Other Therapeutic Substance into Pleural Cavity, Percutaneous Approach (ICD-10-PCS; 2018-12-21)
DX: J93.83 Other pneumothorax (principal); J43.9 Emphysema, unspecified; Z91.030 Bee allergy status; Z87.891 Personal history of nicotine dependence

== ENCOUNTER → 2019-01-07 | Outpatient (CLI) | payer OTHER ==
[~2019-01-07] MED LIST: PERCOCET PO
--- NOTE | 2019-01-07 11:52 | REP ---
PA and lateral chest: Comparison is 12/30/2018. The patient is status post left upper lobe wedge resection. There is a surgical staple line in the apex of the left lung, unchanged. There is pleural thickening over the apex of the left lung, unchanged. There are two small loculated air collections within the pleural thickening, decreased in size. A otherwise, no pneumothorax is identified. Remainder of the left lung is clear and unchanged. Right lung is clear. Cardiac size is normal. The taran, mediastinum, and skeletal structures are unchanged. Impression: Postsurgical changes in the left apex as described. Electronically Signed by Ayad Tiwari MD 01/07/2019 11:44 A
== END ==
LOC: M SMT 09:29
PROVIDERS: ATTEND Thoracic Surgery (Cardiothoracic Vascular Surgery)
DX: J18.9 Pneumonia, unspecified organism (principal)

== ENCOUNTER → 2020-05-21 | Outpatient (CLI) | payer SELFPAY | LOC: M LABSMTC 13:56 | PROVIDERS: ATTEND Pediatrics | DX: Z20.822 Contact with and (suspected) exposure to COVID-19 (principal) ==